=== PATIENT | female | born 1960 ===

== ENCOUNTER → 2021-11-20 | Outpatient (REF) | payer OTHER ==
[2021-11-20 18:41] LABS: CREATININE, URINE 23.3 MG/DL; MALB URINE SIEMENS < 5.0 MG/L; MAU/CREAT RATIO 21.4 MCG/MG (0.0-30.0)
== END ==
LOC: M LAB REF 16:46
PROVIDERS: ATTEND Nurse Practitioner Family
DX: E11.65 Type 2 diabetes mellitus with hyperglycemia (principal)

== ENCOUNTER → 2022-12-19 | Outpatient (REF) | payer OTHER ==
[2022-12-19 18:15] LABS: CREATININE, URINE 30.9 MG/DL; MAU/CREAT RATIO 16.1 MCG/MG (0.0-30.0)
== END ==
LOC: M LAB REF 17:14
PROVIDERS: ATTEND Nurse Practitioner Family
DX: E11.65 Type 2 diabetes mellitus with hyperglycemia (principal)